=== PATIENT | female | born 1985 | race Caucasian/White ===

== ENCOUNTER 2019-01-10 21:13 | Emergency (ER) | payer MEDICAID, SELFPAY ==
[2019-01-10 21:13] VITALS: BP 131/77; PULSE 101; RESP 14; TEMP 36.3; O2SAT 99; BMI 30.2
--- NOTE | 2019-01-10 23:34 | ED.VIS.GEN ---
History of Present Illness Chief Complaint: Rash Narrative: Patient is a 33-year-old female who presents with a rash. She noticed what appeared to be several bug bites along her left forearm and wrist with redness and itching. Patient also noticed a bite on her left cheek and she has some swelling around the left eye. She did not actually see anything bite her. No fevers nausea vomiting chest pain shortness of breath. No history of prior similar symptoms. She denies medical history. Past Medical History - Allergies and Home Meds Allergies/Adverse Reactions: Allergies No Known Allergies Allergy (Verified 01/10/19 21:16) Primary Care Physician: Rohit Physician,Gloria Primary [Primary Care Provider] - Past Medical History: None Smoking Status: Current every day smoker Review of Systems All systems negative except as indicated General: Denies: Fever Cardiovascular: Denies: Chest pain Respiratory: Denies: Dyspnea Gastrointestinal: Denies: Nausea, Vomiting Skin: Reports: Rash Physical Exam Vital Signs/Narrative: Vital Signs Temp Pulse Resp BP Pulse Ox 01/10/19 21:13 97.3 F L 101 H 14 131/77 H 99 General: Well nourished Head: Normocephalic Eyes: - - Left periorbital edema, small raised area on left cheek suggestive of bug bite Cardiovascular: Regular rate Respiratory: No distress, CTA bilaterally. Negative for: Wheezing Abdomen: Soft Skin: Rash - Patient has several small raised lesions of the left wrist and forearm, these do emilia, appearance is consistent with a bug bite. There is surrounding erythema consistent with a localized allergic reaction. This is not hot to the touch no streaking there are couple of smaller areas on the right forearm with similar appearance as well. Neurological: Alert Psychological: Normal affect Diagnostic/Tx/Re-eval - Medical Decision Making Patient's presentation is most suggestive of localized allergic reactions to a bug bite. She notes that she did sleep in a different place than she normally does. She was advised this could potentially be due to bedbugs. She was given intramuscular Kenalog for treatment here. She understands to return for new or worsening symptoms and was advised of specific signs and symptoms to monitor for. Patient discharged. ED Disposition - Plan for ED Patient: Disposition: Home or Assisted Living Diagnosis: Bug bite, Allergic reaction Instructions: Insect Bite, ALLERGIC REACTION, Insect (Local) Referrals: Care Physician,No Primary [Primary Care Provider] -
[2019-01-10] MEDS: Triamcinolone Acetonide 40 MG/ML Vial IM (23:38)
[2019-01-10 23:57] VITALS: BP 123/71; PULSE 88; RESP 18; O2SAT 99
== END 2019-01-10 23:57 | disposition home or self-care (01) ==
PROVIDERS: Emergency Provider Emergency Medicine
DX: S50.862A Insect bite (nonvenomous) of left forearm, initial encounter (principal); S60.862A Insect bite (nonvenomous) of left wrist, initial encounter; S00.86XA Insect bite (nonvenomous) of other part of head, initial encounter; Y93.9 Activity, unspecified; T78.40XA Allergy, unspecified, initial encounter; W57.XXXA Bitten or stung by nonvenomous insect and other nonvenomous arthropods, initial encounter; Y92.9 Unspecified place or not applicable; Y99.9 Unspecified external cause status; F17.200 Nicotine dependence, unspecified, uncomplicated
CPT/HCPCS: 96372; 99282

== ENCOUNTER 2021-08-27 19:02 | Emergency (ER) | payer MEDICAID, SELFPAY ==
[2021-08-27 19:03] VITALS: BP 136/69; PULSE 107; RESP 18; TEMP 36.5; O2SAT 99; BMI 32.1
--- NOTE | 2021-08-27 19:32 | ED.VIS.FALL ---
HPI HPI - Fall History of Present Illness Chief Complaint: Fall Informant: patient Occured/Mechanism Occurred: Yesterday Mechanism/Context: Yes same level fall and Yes slip Usually ambulates: Without assistance Pain/Injury Pain Location: back Quality of Pain: Sharp Current Severity: Moderate Maximum Severity: Moderate Associated Symptoms Associated Symptoms: Negative for Parasthesias, Weakness, Loss of function, Inability to ambulate, Loss of consciousness and Amnesia Narrative Narrative: 5-year-old female history of degenerative left hip disease, scoliosis and degenerative disc disease. States yesterday while getting out of the tub she slipped fell injuring her lower back against the tub. No LOC. She complained of lower back pain. Denies any weakness. No bowel or bladder incontinence. She is on no blood thinners. She denies any nausea or vomiting. Prior similar symptoms: No Recent Illness/Hospitalization: No PFSH PFSH Medical History Degenerative disorder of bone Scoliosis Allergy/AdvReac Type Severity Reaction Status Date / Time No Known Allergies Allergy Verified 08/27/21 19:04 Social History Smoking Status: Current every day smoker tobacco type: cigarettes ROS ROS ED ROS Narrative Back pain post fall. Review of Systems ROS Unobtainable: Denies due to encephalopathy Constitutional Constitutional ED: Denies fever(s) Eyes Eyes: Denies change in vision ENT ENT ED: Denies ear pain or rhinorrhea Cardiovascular Cardiovascular: Denies chest pain Respiratory/Chest Respiratory/Chest: Denies cough or dyspnea Gastrointestinal Gastrointestinal: Denies abdominal pain, diarrhea, nausea or vomiting Genitourinary Genitourinary ED: Denies dysuria Musculoskeletal Musculoskeletal: Reports back pain; Denies myalgias Integumentary Denies rash Neurologic Neurologic: Denies weakness Psychiatric Psychiatric: Denies depression Endocrine Endocrinology: Denies polyuria Hematologic/Lymphatic Hematologic/Lymphatic: Denies easy bruising Allergic/Immunologic Allergic/Immunologic ED: Denies urticaria EXAM Physical Exam Narrative Exam Narrative: 35-year-old female no acute distress. Vital signs stable afebrile. H EENT exam pupils round reactive light. No signs of facial trauma. No hematoma or laceration. But does have mild tenderness posterior scalp. C-spine nontender. Trachea midline. Full range of motion of her neck. Lungs clear to auscultation bilaterally. Heart regular rate and rhythm no murmur. Chest were nontender. Abdomen soft nontender. Girdle intact. Moving all 4 extremities. Nontender. No deformity. Neurovascular intact. Equal symmetrical intelligence senior sergeant strength. Dorsi plantarflexion intact. Back cervical thoracic spine nontender. No ecchymosis or bruising. Diffuse tenderness over the lumbar spine and paralumbar soft tissue. Neurologically she is awake and alert with no focal motor deficits. NIH score is 0. GCS of 15. She knows date, month, year and president night states. Fingertip to nose within normal limits bilaterally. Const Vital Signs: 08/27/21 19:03 08/27/21 19:09 Temperature 97.7 F L Temperature Source Temporal Pulse Rate 107 H Respiratory Rate 18 Respiratory Effort Normal Respiratory Depth Normal Respiratory Pattern Normal Blood Pressure 136/69 H Blood Pressure Mean 91 Pulse Ox 99 Oxygen Delivery Method Room Air Positive well nourished, well developed and obese; Negative for cachectic, contractures or unkempt General Appearance ED: well developed and NAD; Negative for unkempt, cachectic or contractures Nutritional Appearance: obese; Negative for cachectic HEENT Reports normocephalic trauma and tenderness; Negative for atraumatic or hematoma Eyes PERRL and EOMs intact bilaterally General Eye ED: Negative for pale conjunctiva or scleral icterus Neck full ROM, no lymphadenopathy and supple General: Negative for tenderness Chest Wall inspection of chest normal and palpation of chest normal Resp normal respiratory effort, no retractions and clear to auscultation bilaterally Auscultation: Negative for rales, rhonchi or wheezes Cardio regular rate, regular rhythm, S1 normal heart sound, S2 normal heart sound and no murmurs GI non-tender, non-distended and no masses Auscultation: normoactive bowel sounds Palpation: soft; Negative for guarding Back/Spine no CVA tenderness General Back: Negative for CVA tenderness, swelling or tenderness Cervical Spine: Negative for cervical spine tenderness Thoracic Spine / Upper Back: Negative for thoracic spinal tenderness Lumbar Spine / Lower Back: lumbar spinal tenderness, paraspinal muscle tenderness and straight leg raise negative bilaterally; Negative for straight leg raise positive right or straight leg raise positive - left Extremity normal to inspection, full ROM and no joint enlargement Neuro oriented x3, CN's II-XII intact bilaterally, moves all extremities and no focal motor deficits [place] Coma Scale: document GCS findings Spontaneous Obeys Commands Oriented 15 Sensorium / Orientation: alert, oriented to person, oriented to place and oriented to time; Negative for orientation impaired, confused, lethargic or stuporous Motor Exam: strength 5/5 throughout; Negative for general weakness or strength abnormal Psych mental status grossly normal Appearance: Negative for unkempt Skin Lesions: no lesions Trauma: Negative for abrasion, laceration or puncture MDM MDM MDM Narrative Medical decision making narrative: 35-year-old with a fall in the bed at the [facility] low back pain. Has tenderness to her lumbar spine. X-rays to be obtained. She had no LOC. Has no hematoma to her head. She will be given Norman here for pain. Repeat exam patient doing well at 8:58 PM. To be discharged home. Ice to her back. Motrin and Tylenol for pain. Radiography Diagnostic Testing: Clinical Impression(s) from Imaging Studies Lumbar Spine X-Ray 08/27/21 19:43 IMPRESSION: 1. No compression fracture. Electronically Signed: Bryan Menezes MD ([place]) at 20:00 EDT Reading Location ID and State: [facility] / [place] , Service support , Lumbar spine x-rays 2 views interpreted by myself shows no acute abnormality. No fracture. Also read by the radiologist who agrees. Discharge Plan Triage Chief Complaint: Fall ED Provider: Jose Luis Cedillo Dx/Rx/DC Orders Clinical Impression: Fall, Lumbar contusion, Closed head injury Instructions: ED Back Contusion, ED Head Injury (Adult) Primary Care Provider: Care Physician,No Primary Referrals: Ad lAexander MD [STAFF PHYSICIAN] - 1 Week if not improving Care Physician,No Primary [Primary Care Provider] - Activity Restrictions/Additional Instructions: Ice to your back. Motrin Tylenol for pain. Follow-up if not improving. Your x-rays today looked good. Nothing broken. Disposition Disposition: Home, Self Care
--- NOTE | 2021-08-27 19:43 | RAD_ITS ---
STUDY: X-RAY - LUMBAR SPINE REASON FOR EXAM: Female, 35 years old. fall and pain TECHNIQUE: 3 view(s) of the lumbar spine were obtained. COMPARISON: None FINDINGS: Normal lumbar lordosis. There is no substantial scoliosis. There is a normal alignment of the vertebrae. Normal vertebral bodies and endplates. Normal disc space heights. No compression fracture. 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 The soft tissue structures are unremarkable. RAD/Lumbar Spine 2 or 3 Views IMPRESSION: 1. No compression fracture. Electronically Signed: Bryan Menezes MD ([place]) at 20:00 EDT ,
[2021-08-27] MEDS: HYDROcodone Bitartrate/Apap 5/325 Tablet PO (19:59)
== END 2021-08-27 21:06 | disposition home or self-care (01) ==
PROVIDERS: Emergency Provider Emergency Medicine; Visit Provider Emergency Medicine
DX: S30.0XXA Contusion of lower back and pelvis, initial encounter (principal); S09.90XA Unspecified injury of head, initial encounter; W18.2XXA Fall in (into) shower or empty bathtub, initial encounter; W01.198A Fall on same level from slipping, tripping and stumbling with subsequent striking against other object, initial encounter; Y93.E1 Activity, personal bathing and showering; Y92.002 Bathroom of unspecified non-institutional (private) residence as the place of occurrence of the external cause; F17.210 Nicotine dependence, cigarettes, uncomplicated
CPT/HCPCS: 72100; 99283

== ENCOUNTER 2021-10-10 20:52 | Emergency (ER) | payer MEDICAID, SELFPAY ==
[2021-10-10 20:53] VITALS: BP 120/90; PULSE 100; RESP 18; TEMP 36.8; O2SAT 98; BMI 34.0
--- NOTE | 2021-10-10 21:11 | RAD_ITS ---
EXAM: XR LEFT ANKLE COMPLETE, 3 OR MORE VIEWS CLINICAL INDICATION: trauma TECHNIQUE: Frontal, lateral and oblique views of the left ankle. This report was created using [employer] report generation technology. COMPARISON: None. FINDINGS: BONES/JOINTS: Unremarkable. No acute fracture. No subluxation. Normal alignment. Preservation of the joint space. No sclerotic or destructive changes observed. SOFT TISSUES: Unremarkable. No soft tissue swelling or gas. No radiopaque foreign body. RAD/Ankle min 3 Views IMPRESSION: Negative left ankle x-rays. Electronically Signed: Chirag West MD at 21:43 EDT ,
--- NOTE | 2021-10-10 21:11 | ED.VIS.LOWEX ---
HPI History of Present Illness HPI Narrative: Twisted left foot and ankle complaining of pain. Chief Complaint: Lower Extremity Injury Informant: patient Occured/Mechanism Mechanism/Context: Yes injury Onset/Context/Timing Onset: Yesterday Context: Sudden Onset Timing: Continuous Quality of Pain: Dull and Aching Current Severity: Mild Maximum Severity: Mild Associated Symptoms Associated Symptoms: Negative for Weakness or Loss of Funtion Narrative Narrative: 35-year-old female no seen past medical or surgical history. Last night was getting out of car and walking and she twisted her left foot and ankle and fell down. Complaining of pain to the left foot and ankle. No prior history or surgery. No other injuries. Prior similar symptoms: No Recent Illness/Hospitalization: No PFSH PFSH Medical History Degenerative disorder of bone Scoliosis Home Medications NK 10/10/21 [History Last Taken Unknown] Allergy/AdvReac Type Severity Reaction Status Date / Time No Known Allergies Allergy Verified 10/10/21 20:55 Social History Smoking Status: Current every day smoker tobacco type: cigarettes ROS ROS ED ROS Narrative Denies recent illness. Review of Systems ROS Unobtainable: Denies due to encephalopathy Constitutional Constitutional ED: Denies chills Eyes Eyes: Denies blurry vision ENT ENT ED: Denies ear pain Cardiovascular Cardiovascular: Denies chest pain Respiratory/Chest Respiratory/Chest: Denies cough Gastrointestinal Gastrointestinal: Denies abdominal pain Genitourinary Genitourinary ED: Denies dysuria Musculoskeletal Musculoskeletal: Denies arthralgias Integumentary Denies abscess Neurologic Neurologic: Denies headache(s) Psychiatric Psychiatric: Denies anxiety Endocrine Endocrinology: Denies polydipsia Hematologic/Lymphatic Hematologic/Lymphatic: Denies easy bleeding Allergic/Immunologic Allergic/Immunologic ED: Denies mouth swelling EXAM Physical Exam Narrative Exam Narrative: (30 [place] female no acute distress H EENT exam unremarkable. Neck and back nontender. Lungs clear to auscultation. Heart regular rhythm no murmur. Chest were nontender. Abdomen soft nontender. Upper extremities nontender. Normal manager change strength. Normal range of motion. Hips nontender. Right lower extremity nontender. Left ankle mild tenderness and swelling left foot mild tenderness and swelling. Able to wiggle her toes. Normal DP pulse. Achilles tendon intact. No gross bony deformity. Skin intact. Const Vital Signs: 10/10/21 20:53 Temperature 98.3 F Temperature Source Temporal Pulse Rate 100 Respiratory Rate 18 Blood Pressure 120/90 H Blood Pressure Mean 100 Pulse Ox 98 Oxygen Delivery Method Room Air Positive well nourished, well developed and obese; Negative for cachectic, contractures or unkempt General Appearance ED: well developed; Negative for unkempt, cachectic or contractures Nutritional Appearance: obese; Negative for cachectic HEENT Reports moist mucous membranes normocephalic and atraumatic; Negative for trauma or tenderness Neck full ROM and supple Thyroid: Negative for tender Lymph Lymphatic: Negative for other Chest Wall inspection of chest normal and palpation of chest normal Resp normal respiratory effort, no retractions and clear to auscultation bilaterally Effort and Inspection: Negative for pain with movement Auscultation: Negative for rales, rhonchi or wheezes Cardio regular rate, regular rhythm, S1 normal heart sound and S2 normal heart sound GI non-tender, non-distended and no masses Inspection: Negative for abdominal distention Auscultation: normoactive bowel sounds Palpation: soft; Negative for tender, guarding or rebound tenderness present Back/Spine no CVA tenderness General Back: Negative for CVA tenderness Cervical Spine: Negative for cervical spine tenderness Thoracic Spine / Upper Back: Negative for thoracic spinal tenderness Lumbar Spine / Lower Back: Negative for lumbar spinal tenderness Extremity normal to inspection and full ROM Extremity Narrative: Except left lateral ankle and plug overwrap machine tender. Mild swelling. Normal DP pulse. Normal Achilles intact. Dorsi plantarflexion intact. Able to wiggle her toes. There is tenderness to the left lateral ankle with mild swelling and midfoot with mild swelling. General Extremety ED: Yes edema and weight-bearing difficulty; Negative for cyanosis General Extremity: edema and weight-bearing difficulty; Negative for cyanosis Neuro oriented x3 and moves all extremities Sensorium / Orientation: alert, oriented to person and oriented to time; Negative for orientation impaired, confused, lethargic or stuporous Motor Exam: strength 5/5 throughout Psych mental status grossly normal Appearance: Negative for unkempt Speech: No other Mood & Affect: Negative for anxious Skin no wounds Lesions: no lesions Rashes: no rashes Trauma: Negative for abrasion MDM MDM MDM Narrative Medical decision making narrative: 35-year-old twisted her foot and ankle x-rays being obtained. She was offered Tylenol and Motrin and said it would not help. Repeat exam at 10:07 PM Patient doing well. Unchanged. We went over x-ray results. She will be discharged with a postop shoe. P Follow-up if not improving. Ice and elevate. Motrin for pain. Lab Data Attestation: I reviewed the patient's lab results. Radiography Diagnostic Testing: Clinical Impression(s) from Imaging Studies Ankle X-Ray 10/10/21 21:11 IMPRESSION: Negative left ankle x-rays. Electronically Signed: Chirag West MD at 21:43 EDT , Foot X-Ray 10/10/21 21:15 IMPRESSION: Negative left foot x-rays. Electronically Signed: Chirag West MD at 21:43 EDT , Left foot x-ray 3 views served by myself and radiologist shows no acute abnormality. No fracture or dislocation. Mild soft tissue swelling. Left ankle x-ray 3 views interpreted by myself and radiologist shows no acute abnormality. No fracture. Discharge Plan Triage Chief Complaint: Lower Extremity Injury ED Provider: Jose Luis Cedillo Dx/Rx/DC Orders Clinical Impression: Fall, Foot sprain, Ankle sprain Instructions: ED Foot Sprain, ED Ankle Sprain (Adult) Prescriptions: No Action NK Primary Care Provider: Care Physician,No Primary Referrals: aMgaly Lewis MD [STAFF PHYSICIAN] - 10-14 Days if not better Care Physician,No Primary [Primary Care Provider] - Activity Restrictions/Additional Instructions: You have a sprained ankle and foot. Nothing broken on the x-ray. Ice and elevate. 5 times a day for 30 minutes each time for at least the next 2 to 3 days. Motrin for pain and swelling. Slowly increase weightbearing as tolerated. Follow-up if not improving then to reevaluate. Disposition Disposition: Home, Self Care
--- NOTE | 2021-10-10 21:15 | RAD_ITS ---
EXAM: XR LEFT FOOT COMPLETE, 3 OR MORE VIEWS CLINICAL INDICATION: injury TECHNIQUE: Frontal, lateral and oblique views of the left foot. This report was created using [employer] report generation technology. COMPARISON: None. FINDINGS: BONES/JOINTS: Unremarkable. No acute fracture. No subluxation. Normal alignment. Preservation of the joint space. No sclerotic or destructive changes observed. SOFT TISSUES: Unremarkable. No soft tissue swelling or gas. No radiopaque foreign body. RAD/Foot min 3 Views IMPRESSION: Negative left foot x-rays. Electronically Signed: Chirag West MD at 21:43 EDT ,
== END 2021-10-10 22:32 | disposition home or self-care (01) ==
PROVIDERS: Emergency Provider Emergency Medicine; Visit Provider Emergency Medicine
DX: S93.402A Sprain of unspecified ligament of left ankle, initial encounter (principal); S93.602A Unspecified sprain of left foot, initial encounter; X50.1XXA Overexertion from prolonged static or awkward postures, initial encounter; Y92.810 Car as the place of occurrence of the external cause; F17.210 Nicotine dependence, cigarettes, uncomplicated
CPT/HCPCS: 73610; 73630; 99283